=== PATIENT | female | born 1950 | race Caucasian/White ===

== ENCOUNTER 2016-09-17 13:37 | Inpatient (IN) ==
[2016-09-17] MEDS ORDERED: ASPIRIN PO STA (13:58)
[2016-09-17 14:46] LABS: MANUAL DIFF NEEDED? NO
[2016-09-17 14:52] LABS: EOS# 0.04 X1000 (0.0-0.7); EOS% 0.6 % (0.0-10.0); HEMATOCRIT 43.1 % (37.0-47.0); HEMOGLOBIN 13.7 g/dL (12.0-16.0); IMM GRAN# 0.01 X1000 (0.0-0.04); IMM GRAN% 0.1 % (0.0-0.5); LYMPH% 19.6 % (20.5-51.1); MCH 30.6 PG (27-31); MCHC 31.8 g/dL (33-37); MCV 96.4 FL (81-99); MONO# 0.46 X1000 (0.11-0.59); MONO% 6.4 % (1.7-9.3); MPV 11.3 FL (7.4-10.4); NEUT% 72.3 % (42.2-75.2); PLT 276 X1000 (130-400); RBC 4.47 XMIL (4.2-5.4)
[2016-09-17 15:02] LABS: AGAP 13; ALBUMIN 4.7 g/dL (3.5-5.0); ALKALINE PHOSPHATASE 69 U/L (32-104); BUN 17 mg/dL (8-22); CALCIUM 10.4 mg/dL (8.8-10.2); CHLORIDE 94 mmol/L (98-107); CK PROFILE 143 U/L (24-173); COSMO 277; GOT 29 U/L (10-30); GPT 15 U/L (10-36); POTASSIUM 4.7 mmol/L (3.5-5.1); SODIUM 137 mmol/L (136-145); TCO2 30 mmol/L (25-35)
--- NOTE | 2016-09-17 15:18 | Diag Imaging Result Document ---
PROCEDURE NAME: CHEST-2 VIEWS - 09/17/2016 CHEST 2 VIEWS: COMPARISON: 10/14/2015. FINDINGS: Heart size is normal. There are COPD changes with hyperexpanded lungs. There are left lower lung granulomas and calcified left hilar lymph node from old granulomatous disease which are stable. There are no acute changes identified. There is no consolidation, pleural effusion, or pneumothorax identified. There are surgical clips at the left hilum. There is thoracic dextroscoliosis noted. IMPRESSION: COPD with hyperexpanded lungs. No other evidence of acute disease.
--- NOTE | 2016-09-17 15:54 | PROVIDER DOCUMENTATION ---
HPI-General Adult - General Chief Complaint: Shortness of Breath Stated Complaint: SOB Time Seen by Provider: 09/17/16 15:50 Source: patient, family Allergies/Adverse Reactions: Patient Allergies Allergy/AdvReac Type Severity Reaction Status Date / Time clopidogrel bisulfate * Allergy Severe ANAPHYLAXIS Verified 05/11/16 18:25 [From Plavix] Penicillins Allergy Severe HIVES Verified 05/11/16 18:25 Home Medications: Aripiprazole [Abilify] 5 mg PO DAILY 10/14/15 Atenolol 25 mg PO QHS 10/14/15 Doxepin HCl [Silenor] 6 mg PO QHS 10/14/15 Hydrocodone/Acetaminophen [[place] 10-325 Tablet] 1 each PO BID 10/14/15 Levothyroxine [Synthroid] 75 microgm PO DAILY 10/14/15 Paroxetine [Paxil] 20 mg PO DAILY 10/14/15 Pregabalin [Lyrica] 150 mg PO BID 10/14/15 - History of Present Illness -Gen Adult Nature of Presenting Problems: 65 y/o F presents to the ED c/o cough, shortness of breath, back pain. onset x2 weeks ago. can only do small amounts of walking at a time. hx of lung ca with 1/ 3 left lung removed. denies fever, chest pain and all other symptoms. pcp Dr Brewster. Severity: reports: mild Onset/Duration: reports: other (x2 weeks) Modifying Factors: improves with: nothing Associated Symptoms: reports: cough, shortness of breath Review of Systems - Adult - REVIEW OF SYSTEMS - ADULT Constitutional: denies: chills, fever Ears, Nose, Mouth & Throat: reports: sinus problem, throat pain. denies: ear pain Cardiovascular: reports: palpitations. denies: chest pain Respiratory: reports: cough (productive, brown and yellow), dyspnea on exertion , shortness of breath Gastrointestinal: denies: diarrhea, nausea, vomiting Musculoskeletal: reports: back pain, muscle aches. denies: bone pain Neurological: denies: dizziness/vertigo, headache/migraines Allergic/Immunologic: denies: eczema, hives Past History - Adult - PAST MEDICAL HISTORY-ADULT Review of Records: reports: Nursing Assessment Review, Medications Reviewed, Social history reviewed & non-contributory. Major Childhood Illnesses: reports: denies history Cardiovascular: reports: HTN, hyperlipidemia, [place] Respiratory: reports: COPD, cancer (lung cancer) Gastrointestinal: reports: GERD Obstetrical/Gynecological: reports: denies history Genitourinary: reports: denies history Musculoskeletal: reports: denies history Neurological: reports: denies history Endocrine/Immune: reports: thyroid disorder Other Conditions: reports: other (sleep apnea) - PRIOR SURGERIES/PROCEDURES Surgical/Procedure History: reports: appendectomy, hysterectomy, orthopedic ( extremity), other - IMMUNIZATION STATUS Childhood Immunizations: See Nurse Assessment Flu Vaccine: See Nurse Assessment - FAMILY HISTORY Family History: other (Parkinson's) Physical Exam-General - PHYSICAL EXAM-ADULT Initial Vital Signs Reviewed: Yes - CONSTITUTIONAL General Appearance: alert, no apparent distress - EYES Eyes: PERRL/EOMI, pink conjunctivae - HEAD, EARS, NOSE, MOUTH & THROAT HENMT: moist mucous membranes, normal ENT inspection - NECK Neck: full range of motion, normal inspection - RESPIRATORY Respiratory: no respiratory distress, no accessory muscle use, other (decreased breath sounds) - CARDIOVASCULAR Cardiovascular: normal peripheral pulses, regular rate, rhythm - GASTROINTESTINAL (ABDOMEN) Abdominal Exam: normal bowel sounds, non tender, soft - SKIN Integumentary: normal color, warm/dry - NEUROLOGIC Neurologic: retail department reset II-XII nml as tested, no motor/sensory deficits - PSYCHIATRIC Psych/Mental Status: normal mood/affect, oriented x 3 Progress - PLAN OF CARE/RESULTS Progress/Plan/Lab Results: 1708-- Discussed with Dr Reza, accepts for admission. Laboratory Tests 09/17/16 09/17/16 09/17/16 14:43 14:43 14:43 WBC 7.14 RBC 4.47 Hgb 13.7 Hct 43.1 MCV 96.4 MCH 30.6 MCHC 31.8 L RDW Std Deviation 14.8 H Plt Count 276 MPV 11.3 H Immature Gran % (Auto) 0.1 Neut % (Auto) 72.3 Lymph % (Auto) 19.6 L [place] % (Auto) 6.4 Eos % (Auto) 0.6 Baso % (Auto) 1.0 H Immature Gran # (Auto) 0.01 Neut # (Auto) 5.16 Lymph # (Auto) 1.40 [place] # (Auto) 0.46 Eos # (Auto) 0.04 Baso # (Auto) 0.07 Specimen Type Sample Site pH pCO2 pO2 HCO3 Base Excess Oxyhemoglobin ABG O2 Sat (Calculated) ABG O2 Saturation ABG Carboxyhemoglobin ABG Methemoglobin Curry Test A-a O2 Difference Total Hemoglobin Lactate Blood Gas Modality FiO2 % Sodium 137 Potassium 4.7 Chloride 94 L Carbon Dioxide 30 Anion Gap 13 BUN 17 Creatinine 0.7 Estimated GFR/1.73 m2 > 60 BUN/Creatinine Ratio 24 Glucose 130 H Calculated Osmolality 277 Calcium 10.4 H Total Bilirubin 0.30 AST 29 ALT 15 Alkaline Phosphatase 69 Creatine Kinase 143 Troponin T < 0.010 Total Protein 8.0 Albumin 4.7 Globulin 3.0 Albumin/Globulin Ratio 1.0 09/17/16 16:15 WBC RBC Hgb Hct MCV MCH MCHC RDW Std Deviation Plt Count MPV Immature Gran % (Auto) Neut % (Auto) Lymph % (Auto) [place] % (Auto) Eos % (Auto) Baso % (Auto) Immature Gran # (Auto) Neut # (Auto) Lymph # (Auto) [place] # (Auto) Eos # (Auto) Baso # (Auto) Specimen Type ARTERIAL Sample Site R BRACHIAL pH 7.43 pCO2 47 H pO2 53 L HCO3 29.2 H Base Excess 5.9 H Oxyhemoglobin 86.2 L* ABG O2 Sat (Calculated) 16.2 ABG O2 Saturation 91.7 L ABG Carboxyhemoglobin 5.00 H ABG Methemoglobin 1.1 Curry Test NO A-a O2 Difference 38.0 Total Hemoglobin 13.4 Lactate 0.70 Blood Gas Modality ROOM AIR FiO2 % 21.0 Sodium Potassium Chloride Carbon Dioxide Anion Gap BUN Creatinine Estimated GFR/1.73 m2 BUN/Creatinine Ratio Glucose Calculated Osmolality Calcium Total Bilirubin AST ALT Alkaline Phosphatase Creatine Kinase Troponin T Total Protein Albumin Globulin Albumin/Globulin Ratio Orders Category Date Time Status Admit - [facility] Routine AdmDCTranf 09/17/16 17:11 Ordered Activity - Bed Rest with BRP ORDERED Care 09/17/16 17:11 Active Call Admitting on Arrival AT ADMISSION Care 09/17/16 17:13 Active Saline Loc DIRECTED Care 09/17/16 17:11 Active Vital Signs Order ROUTINE Care 09/17/16 17:11 Active Heart Healthy Diet Diet 09/17/16 17:16 Active CHEST-2 VIEWS [RAD] Stat Exams 09/17/16 13:59 Completed ABG [RESP] Routine Lab 09/17/16 16:15 Completed CBC WITH ELECTRONIC DIFF [HEME] Stat Lab 09/17/16 14:43 Completed CK PROFILE [SP CHEM] Stat Lab 09/17/16 14:43 Completed COMPREHENSIVE METABOLIC PANEL [CHEM] Stat Lab 09/17/16 14:43 Completed TROPONIN T Stat Lab 09/17/16 14:43 Completed 0.9% Sodium Chloride Inj [Ns] 1,000 ml Med 09/17/16 17:15 Ordered IV 75 mls/hr Acetaminophen [Tylenol] Med 09/17/16 17:11 Active 650 mg PO Q6H PRN PRN Albuterol 2.5MG/Ipratrop 0.5MG [Duoneb (A & A)] Med 09/17/16 19:30 Ordered 3 ml INH RTQ4H Aspirin Med 09/17/16 13:58 Discontinued 325 mg PO STAT STA Aerosol Treatments Routine Oth 09/17/16 17:17 Active Aerosol Treatments Stat Oth 09/17/16 17:17 Active Oxygen Device Routine Oth 09/17/16 17:14 Active Telemetry [OM.EQ] Routine Oth 09/17/16 17:11 Active EKG [EKG] Stat Ther 09/17/16 16:51 Ordered Transfer/Admit Order [TRANSFER] Routine Transfer 09/17/16 17:09 Ordered Vital Signs - 24 hr 09/17/16 09/17/16 09/17/16 13:43 15:26 16:34 Temperature 99.5 F Pulse Rate 83 73 80 Respiratory 18 20 11 L Rate Blood Pressure 123/064 118/63 152/88 O2 Sat by Pulse 99 85 L Oximetry 09/17/16 09/17/16 16:45 17:05 Temperature Pulse Rate 80 79 Respiratory 11 L Rate Blood Pressure 148/90 141/75 O2 Sat by Pulse 98 Oximetry - EKG 1 Time of EKG reading by physician:: 17:14 EKG Read and Signed by:: Pravin Christianson EKG Interpretation (*Must complete 3 of following elements*): Abnormal Rate: 64 Rhythm: NSR Paradox: normal - XRAY 1 XRAY Study: Chest Impression: See EMR Report (COPD with hyperexpanded lungs; o/w negative) Departure - Departure Time of Disposition Order: 17:09 DIAGNOSIS: COPD with acute exacerbation Disposition: ADMITTED INPATIENT 09 Certified Medical Emergency: Emergent Condition: Stable Referrals: Og Brewster MD [Primary Care Provider] - Attestation - Scribe Verification/Attestation Scribe:: Beto Fitzgerald Acting as Scribe for:: Pravin Christianson Scribe documention review:: This chart was documented by a scribe and accurately reflects the service the provider performed and the decisions made by the provider.
[2016-09-17 16:28] LABS: BE 5.9 mmoll (-3.0-3.0); BLOOD TYPE ARTERIAL; DRAW SITE R BRACHIAL; METHB 1.1 % (0.0-1.5); O2(CT) 16.2 mL/dL (15.0-23.0); PCO2(98.6) 47 mmHg (35-45); PO2(98.6) 53 mmHg (60-100); SAMPLE BLOOD; SAO2 91.7 % (95.0-100.0); THB 13.4 g/dL (11.5-17.4); pH(98.6) 7.43 (7.35-7.45)
[2016-09-17 16:30] LABS: MODALITY ROOM AIR
[2016-09-17 16:31] LABS: ALLEN TEST NO
[2016-09-17] MEDS ORDERED: TYLENOL PO PRN (17:11)
[2016-09-17] MEDS ORDERED: NS 1,000 ML IV SCH (17:15)
[2016-09-17] MEDS: DUONEB (A & A) INH SCH ×2 (18:45→23:03)
--- NOTE | 2016-09-17 18:53 | EKG Report ---
Test Performed on : 09/17/2016 5:08:35 PM Test Reason : CP Blood Pressure : / mmHG Vent. Rate : 064 BPM Atrial Rate : 064 BPM P-R Int : 128 ms QRS Dur : 072 ms QT Int : 396 ms P-R-T Axes : 088 079 015 degrees QTc Int : 408 ms Normal sinus rhythm. Anteroseptal infarct (cited on or before 14-OCT-2015) Abnormal ECG When compared with ECG of 14-OCT-2015 15:09, Questionable change in initial forces of Septal leads Unconfirmed Result
[2016-09-17] MEDS ORDERED: DUONEB (A & A) INH PRN (23:30)
[2016-09-17] MEDS ORDERED: KLONOPIN PO ONE (23:31)
[2016-09-17] MEDS ORDERED: NORCO-7.5 PO ONE (23:33)
[2016-09-17] MEDS ORDERED: ZOFRAN IV PRN (23:33)
[2016-09-17] MEDS ORDERED: LOVENOX SUBQ SCH (23:45)
[2016-09-17] MEDS ORDERED: SODIUM CHLORIDE 0.9% INJ SCH (23:45)
[2016-09-18] MEDS: LEVAQUIN 750 MG/D5W 150 ML IV SCH ×2 (00:14→23:20)
[2016-09-18] MEDS: SOLU-MEDROL IV SCH ×3 (00:15→16:58)
[2016-09-18] MEDS: PROTONIX IV SCH ×2 (00:15→23:18)
[2016-09-18] MEDS: NICODERM PATCH TD PRN ×2 (00:16→23:41)
[2016-09-18] MEDS: LOVENOX SUBQ SCH ×2 (00:16→23:19)
--- NOTE | 2016-09-18 00:48 | HISTORY AND PHYSICAL ---
CHIEF COMPLAINT: Shortness of breath, cough. HISTORY OF PRESENT ILLNESS: This is a 65-year-old female with history of COPD, presenting with COPD exacerbation essentially. She has been sick for the last week ever since [place], which was about 10 days ago. She has been having dyspnea and cough with brownish sputum. Positive chills, fevers. No previous treatments. Shortness of breath and cough have been worse over the last several days. Her family reports that she has not been able to get out of bed for the last several days, and not eating and drinking very well. She does complain of pain in the left side of her head and her left side, but nothing too remarkable from that side on exam in any case. The patient admitted for COPD exacerbation. PROBLEMS: 1. Reported CAD. 2. Hypertension. 3. History of lung cancer. 4. COPD. PAST SURGICAL HISTORY: 1. She has had a lobectomy on the left side, in 2009. 2. Hysterectomy. 3. Appendectomy. 4. Tonsillectomy. FAMILY HISTORY: Son has diabetes. ALLERGIES: Penicillin and Plavix. MEDICATIONS LIST: Being compiled. She does admit to being on atenolol, Lyrica and [place]. REVIEW OF SYSTEMS: Otherwise negative times a 10 point review of systems. SOCIAL HISTORY: Half a pack a day for 50 years, so at least a [id number] history. I think probably closer to 30. PHYSICAL EXAM: Blood pressure 125/64, heart rate 66, respiratory rate 18, temperature 98.5. GENERAL: A well-developed female, in no acute distress. She has been cachectic. BMI of 8. Not sure how accurate that is, but she is very small in frame. HEENT: Pupils equal, round, reactive to light. Extraocular movements were intact. Showed moist mucous membranes. NECK: Supple. CARDIOVASCULAR: Regular rate and rhythm. No murmurs, gallops, or rubs. PULMONARY: She had diffuse end-expiratory wheezes throughout. GI: Soft, nontender, nondistended. Bowel sounds are positive. EXTREMITIES: No clubbing or cyanosis. LYMPHATICS: No peripheral edema. NEUROLOGICAL: Nonfocal. NEURO: Nonfocal. LABORATORY DATA: No white count. Chemistries looked okay. Calcium mildly elevated. Blood gas was PaO2 of 53, otherwise normal on room air. Chest x-ray was clear, except for emphysema. ASSESSMENT AND PLAN: This is a 65-year-old female with history of COPD, presenting with a COPD exacerbation. 1. COPD exacerbation. Continue nebulizers, antibiotics and steroids, and follow clinically. 2. Reported hypertension. Resume her medications once stabilized. 3. Chronic pain. We will continue to monitor very closely. Check a urine sample, rule out any issues. Her abdominal exam is fairly benign.
[2016-09-18] MEDS: DUONEB (A & A) INH SCH ×5 (04:01→18:30)
[2016-09-18] MEDS: NORCO-7.5 PO PRN ×2 (06:20→17:12)
[2016-09-18 08:03] LABS: HEMATOCRIT 38.1 % (37.0-47.0); HEMOGLOBIN 12.1 g/dL (12.0-16.0); MCH 30.6 PG (27-31); MCHC 31.8 g/dL (33-37); MCV 96.2 FL (81-99); MPV 11.4 FL (7.4-10.4); RBC 3.96 XMIL (4.2-5.4)
[2016-09-18 08:25] LABS: AGAP 8; BUN 18 mg/dL (8-22); CALCIUM 9.1 mg/dL (8.8-10.2); CHLORIDE 100 mmol/L (98-107); COSMO 279; MAGNESIUM 1.5 mg/dL (1.5-2.7); POTASSIUM 4.7 mmol/L (3.5-5.1); SODIUM 136 mmol/L (136-145); TCO2 28 mmol/L (25-35)
[2016-09-18 15:07] LABS: URINE CULTURE PL NEEDED? NO; URINE SOURCE CLEAN CATCH
[2016-09-18 15:09] LABS: BILIRUBIN URINE NEGATIVE (NEGATIVE); BLOOD URINE NEGATIVE (NEGATIVE); CLARITY CLEAR (CLEAR); COLOR YELLOW; LEUKOCYTES URINE NEGATIVE (NEGATIVE); NITRITE URINE NEGATIVE (NEGATIVE); PH URINE 6.5; PROTEIN URINE NEGATIVE (NEGATIVE); UROBILINOGEN URINE NORMAL
[2016-09-18 15:21] LABS: URINE EPITHELIAL CELLS >10 /HPF (<10)
--- NOTE | 2016-09-18 21:45 | PROGRESS NOTE ---
DATE: 09/18/2016 SUBJECTIVE: Patient states she is feeling a little bit better. Still having cough, congestion, shortness of breath, but improved since admission. Denies any chest pains or palpitations. Denies any fevers, chills, denies constipation, melena. PHYSICAL EXAMINATION: Vital signs: Temperature 98 degrees, pulse 78, respiratory rate 18, blood pressure 116/56. General: Patient well developed, well nourished. Currently in mild respiratory distress. She is awake, alert. Neck: Supple. CARDIOVASCULAR: Regular rate. Chest: Relatively clear. Mild wheezing, but appears improved from yesterday's exam. Abdomen: Soft. Extremities: Moves all extremities. Neurologic: No changes. LABORATORY: Reviewed. ASSESSMENT: 1. Chronic obstructive pulmonary disease with exacerbation. 2. Hypertension. 3. Chronic pain. PLAN: We will continue patient on Solu-Medrol. We will attempt to slowly decrease. Further orders
[2016-09-18] MEDS ORDERED: SOLU-MEDROL IV SCH (23:30)
[2016-09-19] MEDS: DUONEB (A & A) INH SCH ×4 (00:07→11:39)
[2016-09-19] MEDS: NORCO-7.5 PO PRN ×2 (01:00→06:06)
[2016-09-19 10:57] VITALS: BP 154/70
--- NOTE | 2016-09-20 05:15 | DISCHARGE SUMMARY ---
ADMISSION DATE: 09/17/2016 DISCHARGE DATE: 09/19/2016 ADMISSION DIAGNOSES: 1. Chronic obstructive pulmonary disease exacerbation. 2. Hypertension. 3. Chronic pain. DISCHARGE DIAGNOSES: 1. Chronic obstructive pulmonary disease exacerbation. 2. Hypertension. 3. Chronic pain. SUMMARY OF FINDINGS: This is a 65-year-old female who presents with complaints of being sick for the last week since [place] which was approximately 10 days ago. At the day of arrival, had been having dyspnea and a cough with brownish sputum. Positive for chills, fevers, shortness of breath and cough that had progressively worsened over the last several days. She was admitted for COPD exacerbation placed on IV antibiotics, IV steroids and IV hydration. Nicotine patch. Lovenox 30 mg subcu q.24h 4 for DVT prophylaxis, and GI prophylaxis with Protonix 40 mg IV q.24. Patient has remained afebrile for greater than 24 hours. White blood cell count is within normal limits. O2 saturation on room air is 95-96%, and so it is felt that she can safely be discharged home. DISCHARGE MEDICATIONS: She will have a prescription for Levaquin 750 mg p.o. daily #7 with no refills and a Medrol Dosepak as directed. She will continue her other home medications of Abilify 5 mg p.o. daily, atenolol 25 mg p.o. at bedtime, doxepin 6 mg p.o. at bedtime, [place] 10 1 p.o. b.i.d., Synthroid 75 mcg p.o. daily, Paxil 20 mg p.o. daily, and Lyrica 150 mg p.o. b.i.d. FOLLOWUP: She will need to follow up with her primary care physician in 1-2 weeks. TIME SPENT: 35 minutes. Dictated by MARIA D Amin for Delano Zacarias MD
== END 2016-09-19 14:45 | disposition home health service (06) | DRG 192 ==
LOC: P.ED 13:37 → OBSVTOIN 18:40 → P.MEDSURG 18:40
PROVIDERS: ATTEND Family Medicine
DX: J44.1 Chronic obstructive pulmonary disease with (acute) exacerbation (principal); I10 Essential (primary) hypertension; I25.2 Old myocardial infarction; I25.10 Atherosclerotic heart disease of native coronary artery without angina pectoris; E78.5 Hyperlipidemia, unspecified; E07.9 Disorder of thyroid, unspecified; K21.9 Gastro-esophageal reflux disease without esophagitis; G47.30 Sleep apnea, unspecified; G89.29 Other chronic pain; F17.210 Nicotine dependence, cigarettes, uncomplicated; Z85.118 Personal history of other malignant neoplasm of bronchus and lung; Z83.3 Family history of diabetes mellitus
CPT/HCPCS: 36415; 71020; 80048; 80053; 81001; 82550; 82805; 83735; 84484; 85025; 85027; 93005; 94640; 94761; 96360; C9113; J1650; J2920; J2930; J7030; S0164

== ENCOUNTER 2016-11-11 20:08 | Emergency (ER) ==
--- NOTE | 2016-11-11 20:38 | PROVIDER DOCUMENTATION ---
HPI-Headache - General Chief Complaint: General Adult Stated Complaint: SLURRED SPEECH/LEFT ARM NUMBNESS Time Seen by Provider: 11/11/16 20:29 Source: patient Allergies/Adverse Reactions: Patient Allergies Allergy/AdvReac Type Severity Reaction Status Date / Time clopidogrel bisulfate * Allergy Severe ANAPHYLAXIS Verified 11/11/16 20:29 [From Plavix] Penicillins Allergy Severe HIVES Verified 11/11/16 20:29 Home Medications: Home Medication List Medication Instructions Recorded Confirmed Last Taken Type Aripiprazole [Abilify] 5 mg PO DAILY 10/14/15 11/11/16 05/11/16 10:30 History Atenolol 25 mg PO QHS 10/14/15 11/11/16 05/10/16 21:00 History Doxepin HCl [Silenor] 6 mg PO QHS 10/14/15 11/11/16 05/10/16 21:00 History Hydrocodone/Acetaminophen [Achille 1 each PO BID 10/14/15 11/11/16 05/11/16 10:30 History 10-325 Tablet] Levothyroxine [Synthroid] 75 microgm PO DAILY 10/14/15 11/11/16 05/11/16 10:30 History Paroxetine [Paxil] 20 mg PO DAILY 10/14/15 11/11/16 05/11/16 10:30 History Pregabalin [Lyrica] 150 mg PO BID 10/14/15 11/11/16 05/11/16 10:30 History Levofloxacin [Levaquin] 750 mg PO DAILY #7 tablet 09/19/16 11/11/16 Unknown Rx Methylprednisolone 4 mg PO DIRECTED #1 tab.ds.pk 09/19/16 11/11/16 Unknown Rx Roflumilast [Daliresp] 500 mcg PO DAILY #30 tablet 10/05/16 11/11/16 Unknown Rx Albuterol 2.5MG/Ipratrop 0.5MG 3 ml INH Q2H PRN PRN #0 neb 10/09/16 11/11/16 Unknown Rx [Duoneb (A & A)] Albuterol 2.5MG/Ipratrop 0.5MG 3 ml INH RTQ4H #120 neb 10/09/16 11/11/16 Unknown Rx [Duoneb (A & A)] Methylprednisolone [Medrol Dosepak] 4 mg PO DIRECTED #1 package 10/09/16 Unknown Rx - History of Present Illness-Headache Nature of Presenting Problem: 65 Y/O F presents to ED with Stroke Like symptoms. Pt states the symptoms began last night states that she currently has a headache, and that she's been twitching all over beginning on her right side and moving to general body, states she's having blurred vision, slurred speech, nausea. States that she contacted her PCP and he did not contact her back. Pt states that she takes Lower tabs and Clonapin, and thyroid medicine. Pt states that her sister stated that the pt was laying down and almost fell off the body with the twitching. Pt states that in 2009 that she had lung cancer that was removed. Had a hx of heart attack was admitted to [facility]. and a history of COPD, has chronic back pain and HTN. Headache Location: reports: parietal Quality of Pain: reports: other Severity: reports: moderate, severe Onset/Duration: reports: last night Timing: reports: still present Headache History: reports: occasional headaches Any recent trauma/injury?: reports: none Headache Exacerbated by:: reports: nothing Associated Symptoms: reports: slurred speech Review of Systems - Adult - REVIEW OF SYSTEMS - ADULT Constitutional: denies: chills, fever Eyes: reports: blurred vision Cardiovascular: denies: chest pain Respiratory: denies: cough, shortness of breath Gastrointestinal: reports: nausea. denies: abdominal pain, diarrhea, vomiting Musculoskeletal: reports: back pain, muscle aches Neurological: reports: headache/migraines, slurred speech. denies: syncope Past History - Adult - PAST MEDICAL HISTORY-ADULT Review of Records: reports: Old Records Reviewed, Nursing Assessment Review, Medications Reviewed, Social history reviewed & non-contributory. Major Childhood Illnesses: reports: denies history Cardiovascular: reports: HTN, hyperlipidemia, [place] Respiratory: reports: COPD, cancer (lung cancer) Gastrointestinal: reports: GERD Obstetrical/Gynecological: reports: denies history Genitourinary: reports: denies history Musculoskeletal: reports: denies history Neurological: reports: denies history Endocrine/Immune: reports: thyroid disorder Other Conditions: reports: other (sleep apnea) - PRIOR SURGERIES/PROCEDURES Surgical/Procedure History: reports: appendectomy, hysterectomy, orthopedic ( extremity), other (L upper lung ressection) - IMMUNIZATION STATUS Childhood Immunizations: See Nurse Assessment Flu Vaccine: See Nurse Assessment - FAMILY HISTORY Family History: other (Parkinson's) - SOCIAL HISTORY Smoking: cigarettes, less than 1 pack/day Alcohol Use Frequency: never Living Situation: family Physical Exam- Neurological - Physical Exam-Neuro Initial Vital Signs Reviewed: Yes General Appearance: alert, no apparent distress, thin. 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 Exam: normal hearing, normal speech Coordination/Gait: normal finger to nose Neurologic: steam service inspector II-XII nml as tested, grossly normal Integumentary: normal color, normal turgor, warm/dry Psych/Mental Status: normal mood/affect, normal thought content, normal thought process, oriented x 3 - Glascow Coma Scale Best Eye Response: (4) open spontaneously Best Verbal Response: (5) oriented Best Motor Response: (6) obeys commands Total Glascow Score: 15 Progress - PLAN OF CARE/RESULTS Progress/Plan/Lab Results: Laboratory Tests 11/11/16 11/11/16 11/11/16 20:51 20:58 20:58 WBC 10.71 RBC 3.80 L Hgb 11.9 L Hct 37.7 MCV 99.2 H MCH 31.3 H MCHC 31.6 L RDW Std Deviation 15.0 H Plt Count 269 MPV 10.9 H Immature Gran % (Auto) 0.1 Neut % (Auto) 69.9 Lymph % (Auto) 21.0 Creek % (Auto) 8.1 Eos % (Auto) 0.4 Baso % (Auto) 0.5 Immature Gran # (Auto) 0.01 Neut # (Auto) 7.49 H Lymph # (Auto) 2.25 Creek # (Auto) 0.87 H Eos # (Auto) 0.04 Baso # (Auto) 0.05 Specimen Type ARTERIAL Sample Site R BRACHIAL pH 7.43 pCO2 47 H pO2 57 L HCO3 29.3 H Base Excess 6.0 H Oxyhemoglobin 83.8 L* ABG O2 Sat (Calculated) 13.2 L ABG O2 Saturation 94.9 L ABG Carboxyhemoglobin 10.90 H* ABG Methemoglobin 0.8 Curry Test YES A-a O2 Difference 34.0 Total Hemoglobin 11.2 L Lactate 1.10 Blood Gas Modality ROOM AIR FiO2 % 21.0 Sodium 140 Potassium 4.2 Chloride 99 Carbon Dioxide 29 Anion Gap 12 BUN 12 Creatinine 0.6 Estimated GFR/1.73 m2 > 60 BUN/Creatinine Ratio 20 Glucose 105 H Calculated Osmolality 280 Calcium 10.2 Total Bilirubin 0.20 AST 22 ALT 10 Alkaline Phosphatase 66 Creatine Kinase 94 Troponin T [id number] Pept Total Protein 6.8 Albumin 4.1 Globulin 3.0 Albumin/Globulin Ratio 2.0 TSH Urine Opiates Screen Ur Oxycodone Screen Urine Methadone Screen Ur Barbituates Screen Ur Tricyclics Screen Ur Phencyclidine Scrn Ur Amphetamines Screen U Methamphetamines Scrn Urine MDMA Screen U Benzodiazepines Scrn Urine Cocaine Screen U Cannabinoids Screen 11/11/16 11/11/16 11/11/16 20:58 20:58 20:58 WBC RBC Hgb Hct MCV MCH MCHC RDW Std Deviation Plt Count MPV Immature Gran % (Auto) Neut % (Auto) Lymph % (Auto) Creek % (Auto) Eos % (Auto) Baso % (Auto) Immature Gran # (Auto) Neut # (Auto) Lymph # (Auto) Creek # (Auto) Eos # (Auto) Baso # (Auto) Specimen Type Sample Site pH pCO2 pO2 HCO3 Base Excess Oxyhemoglobin ABG O2 Sat (Calculated) ABG O2 Saturation ABG Carboxyhemoglobin ABG Methemoglobin Curry Test A-a O2 Difference Total Hemoglobin Lactate Blood Gas Modality FiO2 % Sodium Potassium Chloride Carbon Dioxide Anion Gap BUN Creatinine Estimated GFR/1.73 m2 BUN/Creatinine Ratio Glucose Calculated Osmolality Calcium Total Bilirubin AST ALT Alkaline Phosphatase Creatine Kinase Troponin T < 0.010 [id number]-H-Srxshbvwpcx Pept 210 Total Protein Albumin Globulin Albumin/Globulin Ratio TSH 3.57 Urine Opiates Screen Ur Oxycodone Screen Urine Methadone Screen Ur Barbituates Screen Ur Tricyclics Screen Ur Phencyclidine Scrn Ur Amphetamines Screen U Methamphetamines Scrn Urine MDMA Screen U Benzodiazepines Scrn Urine Cocaine Screen U Cannabinoids Screen 11/11/16 21:35 WBC RBC Hgb Hct MCV MCH MCHC RDW Std Deviation Plt Count MPV Immature Gran % (Auto) Neut % (Auto) Lymph % (Auto) Creek % (Auto) Eos % (Auto) Baso % (Auto) Immature Gran # (Auto) Neut # (Auto) Lymph # (Auto) Creek # (Auto) Eos # (Auto) Baso # (Auto) Specimen Type Sample Site pH pCO2 pO2 HCO3 Base Excess Oxyhemoglobin ABG O2 Sat (Calculated) ABG O2 Saturation ABG Carboxyhemoglobin ABG Methemoglobin Curry Test A-a O2 Difference Total Hemoglobin Lactate Blood Gas Modality FiO2 % Sodium Potassium Chloride Carbon Dioxide Anion Gap BUN Creatinine Estimated GFR/1.73 m2 BUN/Creatinine Ratio Glucose Calculated Osmolality Calcium Total Bilirubin AST ALT Alkaline Phosphatase Creatine Kinase Troponin T [id number]-G-Enwdxopdfne Pept Total Protein Albumin Globulin Albumin/Globulin Ratio TSH Urine Opiates Screen PRESUMPTIVE POSITIVE A Ur Oxycodone Screen NONE DETECTED Urine Methadone Screen NONE DETECTED Ur Barbituates Screen NONE DETECTED Ur Tricyclics Screen NONE DETECTED Ur Phencyclidine Scrn NONE DETECTED Ur Amphetamines Screen NONE DETECTED U Methamphetamines Scrn NONE DETECTED Urine MDMA Screen NONE DETECTED U Benzodiazepines Scrn PRESUMPTIVE POSITIVE A Urine Cocaine Screen NONE DETECTED U Cannabinoids Screen NONE DETECTED Orders Category Date Time Status CHEST-2 VIEWS [RAD] Stat Exams 11/11/16 20:47 Taken PELVIS [RAD] Routine Exams 11/11/16 21:48 Taken ABG [RESP] Routine Lab 11/11/16 20:51 Completed CBC WITH DIFF [HEME] Stat Lab 11/11/16 20:58 Completed CK PROFILE [SP CHEM] Stat Lab 11/11/16 20:58 Completed COMPREHENSIVE METABOLIC PANEL [CHEM] Stat Lab 11/11/16 20:58 Completed PRO B-NATRIURETIC PEPTIDE Stat Lab 11/11/16 20:58 Completed TROPONIN T Stat Lab 11/11/16 20:58 Completed TSH Stat Lab 11/11/16 20:58 Completed URINE DRUG SCREEN PL Stat Lab 11/11/16 21:35 Completed Methylprednisolone Acetate [Depo-Medrol] Med 11/11/16 23:10 Discontinued 40 mg IM NOW ONE EKG [EKG] Routine Ther 11/11/16 20:46 Ordered Vital Signs - 24 hr 11/11/16 11/11/16 11/11/16 20:22 22:00 22:30 Temperature 98.2 F Pulse Rate 86 79 81 Respiratory 18 20 20 Rate Blood Pressure 120/79 116/63 120/63 O2 Sat by Pulse 94 L 95 94 L Oximetry - REASSESSMENT Reassessment #1 Time Reassessed: 22:15 Status: improving Reassessment Comment: Pt was told to quit smoking. - EKG 1 Time of EKG reading by physician:: 20:50 EKG Read and Signed by:: Carl Pretty EKG Interpretation (*Must complete 3 of following elements*): Normal Rate: 83 Rhythm: NSR Comments: Abnormal ECG Departure - Departure Time of Disposition Order: 23:39 DIAGNOSIS: COPD with acute exacerbation Disposition: HOME 01 Certified Medical Emergency: Emergent Condition: Stable Additional Instructions: ED Follow Up Instructions: You have been treated by a care provider in the Emergency Department. These instructions are being provided to you so you can have an understanding of how to care for yourself upon discharge. Upon discharge from the Emergency Department, you are responsible for making arrangements for follow-up care by a physician of your choice. Take all prescribed medications as directed. Return to the Emergency Department immediately for any new or worsening symptoms. You may call the Physician Referral phone number at [phone] to obtain a list of Physicians who are taking new patients. Referrals: Og Brewster MD [Primary Care Provider] - Attestation - Scribe Verification/Attestation Scribe:: Sarha Rios Acting as Scribe for:: Carl Pretty Scribe documention review:: This chart was documented by a scribe and accurately reflects the service the provider performed and the decisions made by the provider.
[2016-11-11 21:02] LABS: MANUAL DIFF NEEDED? NO
[2016-11-11 21:04] LABS: BASO% 0.5 % (0.0-0.8); EOS# 0.04 X1000 (0.0-0.7); EOS% 0.4 % (0.0-10.0); HEMATOCRIT 37.7 % (37.0-47.0); HEMOGLOBIN 11.9 g/dL (12.0-16.0); IMM GRAN# 0.01 X1000 (0.0-0.04); IMM GRAN% 0.1 % (0.0-0.5); LYMPH# 2.25 X1000 (1.2-3.4); MCH 31.3 PG (27-31); MCHC 31.6 g/dL (33-37); MCV 99.2 FL (81-99); MONO# 0.87 X1000 (0.11-0.59); MONO% 8.1 % (1.7-9.3); MPV 10.9 FL (7.4-10.4); NEUT% 69.9 % (42.2-75.2); PLT 269 X1000 (130-400)
[2016-11-11 21:08] LABS: BLOOD TYPE ARTERIAL; DRAW SITE R BRACHIAL; METHB 0.8 % (0.0-1.5); O2(CT) 13.2 mL/dL (15.0-23.0); PCO2(98.6) 47 mmHg (35-45); PO2(98.6) 57 mmHg (60-100); SAMPLE BLOOD; SAO2 94.9 % (95.0-100.0); THB 11.2 g/dL (11.5-17.4); pH(98.6) 7.43 (7.35-7.45)
[2016-11-11 21:16] LABS: ALLEN TEST YES; MODALITY ROOM AIR
[2016-11-11 21:51] LABS: AGAP 12; ALBUMIN 4.1 g/dL (3.5-5.0); ALKALINE PHOSPHATASE 66 U/L (32-104); BUN 12 mg/dL (8-22); CALCIUM 10.2 mg/dL (8.8-10.2); CHLORIDE 99 mmol/L (98-107); CK PROFILE 94 U/L (24-173); COSMO 280; GOT 22 U/L (10-30); GPT 10 U/L (10-36); POTASSIUM 4.2 mmol/L (3.5-5.1); SODIUM 140 mmol/L (136-145); TCO2 29 mmol/L (25-35); TOTAL PROTEIN 6.8 g/dL (6.3-8.3)
[2016-11-11 21:52] LABS: UR AMPHETAMINES QUAL NONE DETECTED (NONE DETECT); UR BARBITUATES QUAL NONE DETECTED (NONE DETECT); UR BENZODIAZEPIN QUAL PRESUMPTIVE POSITIVE (NONE DETECT); UR COCAINE QUAL NONE DETECTED (NONE DETECT); UR MDMA QUAL NONE DETECTED (NONE DETECT); UR METHADONE QUAL NONE DETECTED (NONE DETECT); UR METHAMPHETAMINE QUAL NONE DETECTED (NONE DETECT); UR OPIATES QUAL PRESUMPTIVE POSITIVE (NONE DETECT)
[2016-11-11 21:53] LABS: UR CANNABINOIDS QUAL NONE DETECTED (NONE DETECT); UR OXYCODONE QUAL NONE DETECTED (NONE DETECT); UR PCP QUAL NONE DETECTED (NONE DETECT); UR TCA QUAL NONE DETECTED (NONE DETECT)
[2016-11-11] MEDS ORDERED: DEPO-MEDROL IM ONE (23:10)
[2016-11-11 23:47] VITALS: BP 124/58
--- NOTE | 2016-11-12 03:49 | EKG Report ---
Test Performed on : 11/11/2016 8:50:46 PM Test Reason : emboli Blood Pressure : / mmHG Vent. Rate : 083 BPM Atrial Rate : 083 BPM P-R Int : 126 ms QRS Dur : 072 ms QT Int : 350 ms P-R-T Axes : 087 076 -06 degrees QTc Int : 411 ms Normal sinus rhythm. Cannot rule out Anterior infarct (cited on or before 14-OCT-2015) ST & T wave abnormality, consider inferior ischemia Abnormal ECG When compared with ECG of 07-OCT-2016 00:40, Questionable change in initial forces of Septal leads Non-specific change in ST segment in Anterolateral leads T wave inversion now evident in Inferior leads T wave inversion now evident in Lateral leads Unconfirmed Result
--- NOTE | 2016-11-12 06:26 | Diag Imaging Result Document ---
PROCEDURE NAME: PELVIS - 11/11/2016 PELVIS SINGLE VIEW: FINDINGS: No fracture. No dislocation. No significant arthritic changes to the hips. The pubic symphysis is not widened. Normal sacroiliac joints. IMPRESSION: Negative exam.
--- NOTE | 2016-11-12 06:50 | Diag Imaging Result Document ---
PROCEDURE NAME: CHEST-2 VIEWS - 11/11/2016 FRONTAL AND LATERAL CHEST, TWO VIEWS: COMPARISON: Compared to 10/07/2016. FINDINGS: The lungs are hyperexpanded. There is increased AP diameter to the chest. Heart is not enlarged. The pulmonary vessels are small. No pleural effusions. There are no infiltrates. There is a calcified left hilar lymph node. IMPRESSION: 1. Emphysema. 2. No pneumonia.
== END 2016-11-11 23:47 | disposition home or self-care (01) ==
LOC: P.ED 20:08
DX: J44.1 Chronic obstructive pulmonary disease with (acute) exacerbation (principal); R47.81 Slurred speech; R20.0 Anesthesia of skin; R51 Headache; R25.3 Fasciculation; H53.8 Other visual disturbances; R11.0 Nausea; M54.9 Dorsalgia, unspecified; Z79.899 Other long term (current) drug therapy; M79.1 Myalgia; I10 Essential (primary) hypertension; E78.5 Hyperlipidemia, unspecified; I25.2 Old myocardial infarction; J44.9 Chronic obstructive pulmonary disease, unspecified; G89.29 Other chronic pain; E07.9 Disorder of thyroid, unspecified; F17.210 Nicotine dependence, cigarettes, uncomplicated; Z85.118 Personal history of other malignant neoplasm of bronchus and lung
CPT/HCPCS: 71020; 72170; 80053; 80305; 82550; 82805; 83880; 84443; 84484; 85025; 93005; J1030

== ENCOUNTER 2017-05-24 13:11 | Inpatient (IN) ==
[2017-05-24 15:57] LABS: BE 12.2 mmoll (-3.0-3.0); BLOOD TYPE ARTERIAL; DRAW SITE R BRACHIAL; METHB 0.9 % (0.0-1.5); O2(CT) 15.4 mL/dL (15.0-23.0); PO2(98.6) 91 mmHg (60-100); SAMPLE BLOOD; SAO2 98.3 % (95.0-100.0); THB 12.4 g/dL (11.5-17.4); pH(98.6) 7.31 (7.35-7.45)
[2017-05-24 16:01] LABS: ALLEN TEST YES; MODALITY CANNULA
[2017-05-24 16:02] LABS: PCO2(98.6) 83 mmHg (35-45)
[2017-05-24 17:37] LABS: BE 13.4 mmoll (-3.0-3.0); BLOOD TYPE ARTERIAL; DRAW SITE R BRACHIAL; METHB 1.3 % (0.0-1.5); O2(CT) 15.5 mL/dL (15.0-23.0); PO2(98.6) 81 mmHg (60-100); SAMPLE BLOOD; SAO2 97.8 % (95.0-100.0); THB 12.4 g/dL (11.5-17.4); pH(98.6) 7.29 (7.35-7.45)
[2017-05-24 17:40] LABS: ALLEN TEST YES; MODALITY CANNULA
[2017-05-24 17:41] LABS: PCO2(98.6) 91 mmHg (35-45)
[2017-05-24] MEDS ORDERED: DUONEB (A & A) INH ONE (18:06)
[2017-05-24] MEDS ORDERED: SOLU-MEDROL IV ONE (18:06)
[2017-05-24] MEDS ORDERED: NICODERM PATCH TD ONE (18:12)
[2017-05-24 18:18] LABS: MANUAL DIFF NEEDED? NO
[2017-05-24 18:21] LABS: BASO% 0.6 % (0.0-0.8); EOS# 0.11 X1000 (0.0-0.7); HEMATOCRIT 39.5 % (37.0-47.0); HEMOGLOBIN 11.9 g/dL (12.0-16.0); IMM GRAN# 0.01 X1000 (0.0-0.04); IMM GRAN% 0.1 % (0.0-0.5); LYMPH% 30.3 % (20.5-51.1); MCH 31.5 PG (27-31); MCHC 30.1 g/dL (33-37); MCV 104.5 FL (81-99); MONO# 1.04 X1000 (0.11-0.59); MONO% 9.6 % (1.7-9.3); MPV 11.2 FL (7.4-10.4); NEUT% 58.4 % (42.2-75.2); PLT 391 X1000 (130-400); RBC 3.78 XMIL (4.2-5.4)
[2017-05-24 18:32] LABS: AGAP 7; ALBUMIN 3.7 g/dL (3.5-5.0); ALKALINE PHOSPHATASE 77 U/L (32-104); BUN 5 mg/dL (8-22); CALCIUM 10.1 mg/dL (8.8-10.2); CHLORIDE 92 mmol/L (98-107); COSMO 263; GOT 22 U/L (10-30); GPT 9 U/L (10-36); POTASSIUM 5.2 mmol/L (3.5-5.1); SODIUM 133 mmol/L (136-145); TCO2 34 mmol/L (25-35); TOTAL BILIRUBIN < 0.15 mg/dL (0.20-1.00); TOTAL PROTEIN 6.8 g/dL (6.3-8.3)
[2017-05-24 19:22] LABS: BE 11.8 mmoll (-3.0-3.0); BLOOD TYPE ARTERIAL; DRAW SITE R BRACHIAL; O2(CT) 14.3 mL/dL (15.0-23.0); SAMPLE BLOOD; SAO2 88.1 % (95.0-100.0); THB 12.6 g/dL (11.5-17.4); pH(98.6) 7.32 (7.35-7.45)
[2017-05-24 20:01] LABS: PCO2(98.6) 80 mmHg (35-45); PO2(98.6) 46 mmHg (60-100)
[2017-05-24 20:02] LABS: ALLEN TEST NO; MODALITY CANNULA
[2017-05-24 20:54] LABS: UR AMPHETAMINES QUAL NONE DETECTED (NONE DETECT); UR BARBITUATES QUAL NONE DETECTED (NONE DETECT); UR BENZODIAZEPIN QUAL PRESUMPTIVE POSITIVE (NONE DETECT); UR CANNABINOIDS QUAL NONE DETECTED (NONE DETECT); UR COCAINE QUAL NONE DETECTED (NONE DETECT); UR MDMA QUAL NONE DETECTED (NONE DETECT); UR METHADONE QUAL NONE DETECTED (NONE DETECT); UR METHAMPHETAMINE QUAL NONE DETECTED (NONE DETECT); UR OPIATES QUAL PRESUMPTIVE POSITIVE (NONE DETECT); UR OXYCODONE QUAL NONE DETECTED (NONE DETECT); UR PCP QUAL NONE DETECTED (NONE DETECT); UR TCA QUAL NONE DETECTED (NONE DETECT)
[2017-05-24 21:39] LABS: URINE CULTURE PL NEEDED? NO
[2017-05-24 21:40] LABS: BILIRUBIN URINE NEGATIVE (NEGATIVE); BLOOD URINE NEGATIVE (NEGATIVE); CLARITY CLEAR (CLEAR); COLOR YELLOW; GLUCOSE URINE NEGATIVE (NEGATIVE); LEUKOCYTES URINE NEGATIVE (NEGATIVE); NITRITE URINE NEGATIVE (NEGATIVE); PH URINE 6.5; PROTEIN URINE NEGATIVE (NEGATIVE); SP GRAVITY URINE 1.015; UROBILINOGEN URINE NORMAL
[2017-05-24 21:45] LABS: URINE CAST NONE SEEN /LPF; URINE CRYSTAL NONE SEEN /HPF; URINE EPITHELIAL CELLS <10 /HPF (<10); URINE RBC <10 /HPF (<10); URINE SOURCE CLEAN CATCH; URINE WBC <10 /HPF (<10)
[2017-05-25 00:35] LABS: URINE CULTURE PL NEEDED? NO
[2017-05-25 01:00] LABS: BILIRUBIN URINE NEGATIVE (NEGATIVE); BLOOD URINE TRACE (NEGATIVE); CLARITY CLEAR (CLEAR); COLOR YELLOW; GLUCOSE URINE NEGATIVE (NEGATIVE); LEUKOCYTES URINE NEGATIVE (NEGATIVE); NITRITE URINE NEGATIVE (NEGATIVE); PROTEIN URINE NEGATIVE (NEGATIVE); URINE EPITHELIAL CELLS <10 /HPF (<10); URINE RBC <10 /HPF (<10); URINE SOURCE CATH; URINE WBC <10 /HPF (<10); UROBILINOGEN URINE NORMAL
[2017-05-25 05:42] LABS: BE 14.1 mmoll (-3.0-3.0); BLOOD TYPE ARTERIAL; DRAW SITE R BRACHIAL; METHB 1.1 % (0.0-1.5); O2(CT) 17.3 mL/dL (15.0-23.0); PO2(98.6) 80 mmHg (60-100); SAMPLE BLOOD; SAO2 97.8 % (95.0-100.0); pH(98.6) 7.37 (7.35-7.45)
[2017-05-25 05:46] LABS: ALLEN TEST NO; MODALITY CANNULA; PCO2(98.6) 74 mmHg (35-45)
[2017-05-25 08:20] VITALS: BP 121/74
[2017-05-25] MEDS ORDERED: DUONEB (A & A) INH PRN ×2 (09:35→10:52)
[2017-05-25] MEDS ORDERED: DUONEB (A & A) ONE (09:40)
[2017-05-25] MEDS ORDERED: ZOFRAN IV PRN (09:50)
[2017-05-25] MEDS ORDERED: SALINE LOCK IV FLUID XX ONE (09:50)
[2017-05-25] MEDS ORDERED: PERICOLACE PO PRN (09:53)
[2017-05-25] MEDS ORDERED: NORCO-10 PO PRN (09:53)
[2017-05-25] MEDS ORDERED: KLONOPIN PO PRN (09:53)
[2017-05-25] MEDS ORDERED: NEURONTIN PO SCH (10:00)
[2017-05-25] MEDS ORDERED: LOVENOX SUBQ SCH (10:00)
[2017-05-25] MEDS ORDERED: SOLU-MEDROL IV SCH ×2 (10:00)
[2017-05-25] MEDS ORDERED: DUONEB (A & A) INH SCH ×2 (10:00→11:30)
[2017-05-25] MEDS ORDERED: ULTRAM PO SCH (21:00)
[2017-05-26] MEDS ORDERED: SYNTHROID PO SCH (07:00)
[2017-05-26] MEDS ORDERED: PROTONIX PO SCH ×2 (07:00→09:00)
[2017-05-26] MEDS ORDERED: PAXIL PO SCH (09:00)
== END 2017-05-25 12:20 | disposition home or self-care (01) ==
LOC: P.ED 13:11 → P.MEDSURG 19:48 → P.ICU 20:32
PROVIDERS: ATTEND Family Medicine